=== PATIENT | female | born 1950 | race Two or more races ===

== ENCOUNTER 2019-02-15 19:06 | Emergency (ER) | payer OTHER ==
[2019-02-15] MEDS ORDERED: LET GEL TOPICAL 1 EA SYR TP ONE (20:31)
[2019-02-15] MEDS ORDERED: DOXYCYCLINE HYCLATE 100 MG CAP/TAB PO ONE (20:50)
--- NOTE | 2019-02-15 20:54 | EDPHY ---
H & P Stated Complaint: [facility] fall, head lac, R arm skin tear, denies LOC Time Seen by Provider: 02/15/19 20:40 HPI/ROS: CHIEF COMPLAINT: Elbow laceration HISTORY OF PRESENT ILLNESS: Patient is a 68-year-old female who fell while walking her dog. She has a laceration to her right elbow. She also has a hematoma and abrasion to her left eyebrow. Also small abrasion to her left dorsal hand. She denies any headache or neck pain. She did not lose consciousness. No other injuries. Patient is not on blood thinners. No vision changes. No difficulty breathing through nose. Severity: Moderate Modifying factors: None REVIEW OF SYSTEMS: Constitutional: denies: chills, fever, recent illness, recent injury EENTM: denies: blurred vision, double vision, nose congestion Respiratory: denies: cough, shortness of breath Cardiac: denies: chest pain, irregular heart rate, lightheadedness, palpitations Gastrointestinal/Abdominal: denies: abdominal pain, diarrhea, nausea, vomiting, blood streaked stools Genitourinary: denies: dysuria, frequency, hematuria, pain Musculoskeletal: See above Skin: See above Neurological: denies: headache, numbness, paresthesia, tingling, dizziness, weakness Hematologic/Lymphatic: denies: blood clots, easy bleeding, easy bruising Immunologic/allergic: denies: HIV/AIDS, transplant 10 systems reviewed and negative except as noted EXAM: GENERAL: Well-appearing, well-nourished and in no acute distress. HEAD: Small hematoma left upper eyebrow. No laceration. Atraumatic, normocephalic. EYES: Pupils equal round and reactive to light, extraocular movements intact, sclera anicteric, conjunctiva are normal. No crepitus, and no nasal deformity ENT: TMs normal, nares patent, oropharynx clear without exudates. Moist mucous membranes. NECK: Normal range of motion, supple without lymphadenopathy or JVD. LUNGS: Breath sounds clear to auscultation bilaterally and equal. No wheezes rales or rhonchi. HEART: Regular rate and rhythm without murmurs, rubs or gallops. ABDOMEN: Soft, nontender, normoactive bowel sounds. No guarding, no rebound. No masses appreciated. BACK: No CVA tenderness, no spinal tenderness, step-offs or deformities EXTREMITIES: Laceration to right elbow that does involve the bursa. Normal range of motion, no pitting or edema. No clubbing or cyanosis. NEUROLOGICAL: Cranial nerves II through XII grossly intact. Normal speech, normal gait. 5/5 strength, normal movement in all extremities, normal sensation , normal reflexes PSYCH: Normal mood, normal affect. SKIN: Warm, dry, normal turgor, no visible rashes or lesions. Source: Patient Exam Limitations: No limitations - Personal History Current Tetanus/Diphtheria Vaccine: Yes Current Tetanus Diphtheria and Acellular Pertussis (TDAP): Yes - Medical/Surgical History Hx Asthma: No Hx Chronic Respiratory Disease: No Hx Diabetes: No Hx Cardiac Disease: No Hx Renal Disease: No Hx Cirrhosis: No Hx Alcoholism: No Hx HIV/AIDS: No Hx Splenectomy or Spleen Trauma: No Other PMH: depression. anxiety - Family History Significant Family History: No pertinent family hx - Social History Smoking Status: Never smoked Alcohol Use: Sober Drug Use: None Constitutional: Initial Vital Signs Temperature (C) 37.3 C 02/15/19 19:11 Heart Rate 80 02/15/19 19:11 Respiratory Rate 18 02/15/19 19:11 Blood Pressure 122/70 H 02/15/19 19:11 O2 Sat (%) 96 02/15/19 19:11 O2 Delivery Mode Room Air Allergies/Adverse Reactions: No Known Allergies Allergy (Unverified 02/15/19 19:14) Home Medications: Medication Instructions Recorded Celexa 02/15/19 Doxycycline Hyclate [Vibramycin] 100 mg PO BID #30 cap 02/15/19 Medical Decision Making Procedures: Procedure: Laceration repair. Verbal consent was obtained from the patient. The 2 cm right elbow laceration was anesthetized with 1% lidocaine with epi and bicarbonate locally infiltrated. The wound was irrigated copiously according to protocol, draped and explored to its base. It was approximately 1/2 cm deep. There were no deep structures involved. No tendon, nerve, or vascular injury was identified when explored through full range of motion. No foreign body was identified. The wound was repaired with 5.0 Prolene, 5 sutures, interrupted. The wound repair was simple without wound margin revisement or multiple flap alignment. The procedure was performed by myself. A dressing was then placed with sterile gauze and bacitracin. ED Course/Re-evaluation: Patient tolerated suture repair. Will start on doxycycline for prevention. Discussed follow-up and suture care. Discussed indications for returning. Patient and family feel comfortable with this plan. Differential Diagnosis: Partial list of the Differential diagnosis considered include but were not limited to; elbow laceration, abrasion, eyebrow abrasion, hematoma and although unlikely based on the history and physical exam, I also considered facial fracture, head injury, neck injury. - Data Points Medications Given: Discontinued Medications Doxycycline Hyclate (Doxycycline Hyclate) 100 mg PO EDNOW ONE PRN Reason: Protocol Stop: 02/15/19 20:51 Last Admin: 02/15/19 21:53 Dose: 100 mg Tetracaine/Epinephrine/Lidocaine (Let Gel Topical) 1 ea TP EDNOW ONE Stop: 02/15/19 20:32 Last Admin: 02/15/19 20:36 Dose: 1 ea Departure - Departure Disposition: Home, Routine, Self-Care Clinical Impression: Facial contusion Qualifiers: Encounter type: initial encounter Qualified Code(s): S00.83XA - Contusion of other part of head, initial encounter Laceration of right elbow Qualifiers: Encounter type: initial encounter Qualified Code(s): S51.011A - Laceration without foreign body of right elbow, initial encounter Condition: Fair Instructions: Care For Your Stitches (ED), Laceration (ED) Referrals: NONE *PRIMARY CARE P,. [Primary Care Provider] - As per Instructions Heidi Pride MD [Medical Doctor] - As per Instructions Prescriptions: Doxycycline Hyclate [Vibramycin] 100 mg PO BID #30 cap
[2019-02-15 21:56] VITALS: BP 126/72
== END 2019-02-15 21:55 | disposition home or self-care (01) ==
PROC: 0HQDXZZ Repair Right Lower Arm Skin, External Approach (ICD-10-PCS; principal; 2019-02-15)
DX: S51.011A Laceration without foreign body of right elbow, initial encounter (principal); S00.212A Abrasion of left eyelid and periocular area, initial encounter; S60.512A Abrasion of left hand, initial encounter; S00.12XA Contusion of left eyelid and periocular area, initial encounter; F32.9 Major depressive disorder, single episode, unspecified; F41.9 Anxiety disorder, unspecified; W19.XXXA Unspecified fall, initial encounter; Y93.K9 Activity, other involving animal care